=== PATIENT | female | born 1970 | race Caucasian/White ===

== ENCOUNTER 2020-05-21 05:20 | Day surgery (SDC) | payer OTHER ==
[2020-05-19 12:52] LABS: COVID AG,FIA SOURCE NASOPHARYNGEAL
[~2020-05-21] VITALS: Ht 167.6 cm; Wt 109.0 kg
[~2020-05-21 05:20] MED LIST: ALBU8HFA IH; ARIP15TA7 PO; ASPI-728 PO; CETI10TA58 PO; FAMO20 PO; HYDR-3421 PO; METF-911 PO; MONT10TA26 PO
[2020-05-21] MEDS ORDERED: ALBUTEROL SULFATE 2.5 MG/0.5 ML NEB SOLUTION NEB ONE (05:21)
[2020-05-21] MEDS ORDERED: LIDOCAINE 2% 30 ML JELLY TP ONE (05:21)
[2020-05-21] MEDS ORDERED: BENZOCAINE 20% 50 MCG/SPRAY 57 GM TP ONE (05:21)
[2020-05-21] MEDS ORDERED: LIDOCAINE 4% 50 ML SOLUTION TP ONE (05:21)
[2020-05-21] MEDS ORDERED: SODIUM CHLORIDE 0.9% 1,000 ML ONE (05:40)
[2020-05-21] MEDS ORDERED: SODIUM CHLORIDE 0.9% 1,000 ML IV ONE (06:30)
[2020-05-21 06:55] LABS: GLUCOMETER DEV NAME(LOC) SDS.; GLUCOSE,POINT OF CARE 120 MG/DL (70-110)
[2020-05-21] MEDS ORDERED: MIDAZOLAM HCL 2 MG/2 ML VIAL ONE (08:08)
[2020-05-21] MEDS ORDERED: FentaNYL CITRATE-PF 100 MCG/2 ML VIAL ONE (08:08)
[2020-05-21] MEDS ORDERED: MethylPREDNISolone SOD SUCC 125 MG/2 ML VIAL IVP ONE (08:30)
[2020-05-21] MEDS ORDERED: MethylPREDNISolone SOD SUCC 125 MG/2 ML VIAL ONE (08:43)
[2020-05-21] MEDS ORDERED: OXYGEN THERAPY IH SCH (20:00)
== END 2020-05-21 09:55 | disposition home or self-care (01) ==
LOC: SURGERY 05:20
PROVIDERS: ATTEND Internal Medicine Critical Care Medicine
DX: J38.4 Edema of larynx (principal); B37.0 Candidal stomatitis; Z79.82 Long term (current) use of aspirin; Z79.899 Other long term (current) drug therapy
CPT/HCPCS: 31623; 31624; 71045; 82962; 87015; 87070; 87101; 87206; 87220; 87426; 88108; 88312; C9803; J2250; J2930; J3010; J7030; J7613; Z7610